=== PATIENT | male | born 1960 | race Caucasian/White ===

== ENCOUNTER 2023-07-21 21:27 | Emergency (ER) | payer SELFPAY ==
[~2023-07-21] VITALS: Ht 188 cm; Wt 106.8 kg
[2023-07-21 22:25] VITALS: BP 103/63; PULSE 80; RESP 18; TEMP 98.2; O2SAT 95
== END 2023-07-21 22:27 ==
LOC: ER 21:29
DX: S50.812A Abrasion of left forearm, initial encounter (principal); I10 Essential (primary) hypertension; V49.9XXA Car occupant (driver) (passenger) injured in unspecified traffic accident, initial encounter; Y93.89 Activity, other specified; Y92.89 Other specified places as the place of occurrence of the external cause; Y99.8 Other external cause status
CPT/HCPCS: 99283